=== PATIENT | male | born 1985 | race Caucasian/White ===

== ENCOUNTER 2025-02-10 06:48 | Emergency (ER) | payer OTHER ==
[~2025-02-10] VITALS: Ht 172.7 cm; Wt 71.0 kg
[2025-02-10 06:50] VITALS: TEMP 36.8; O2SAT 99
[2025-02-10] MEDS ORDERED: METH-653 MT (07:16)
[2025-02-10 07:32] VITALS: BP 115/88; PULSE 65; RESP 16
[2025-02-10] MEDS: IBUPROFEN 600MG TABLET PO ONE (07:32)
== END 2025-02-10 07:35 | disposition home or self-care (01) ==
LOC: ER 06:48
DX: M54.50 Low back pain, unspecified (principal)
CPT/HCPCS: 99283